=== PATIENT | female | born 1960 ===

== ENCOUNTER 2018-08-24 16:54 | Emergency (ER) | payer MEDICARE, OTHER ==
[2018-08-24 17:25] VITALS: RESP 16; O2SAT 99
[2018-08-24] MEDS ORDERED: Sodium Chloride 0.9% 1,000 ML IV STA (17:58)
--- NOTE | 2018-08-24 18:16 | ED PDOC ---
HPI: Abdomen Time Seen by Provider: 08/24/18 17:32 Chief Complaint (Nursing): Abdominal Pain Chief Complaint (Provider): Abdomianl pain History Per: Patient History/Exam Limitations: no limitations Onset/Duration Of Symptoms: Days (2) Current Symptoms Are (Timing): Still Present Additional Complaint(s): 58yo female, history of diverticulitis, comes to ER reporting left lower abdominal pain x 2 days with associated frequent stools. She denies any diarrhea, black or bloody stools; also denies any nausea, vomiting or changes in appetite. Patient states her symptoms are similar to prior diagnosis of diverticulitis 5 months ago. She otherwise denies any fever, chills, foreign travels or known sick contacts. She does report she is on the last day of her antibiotics course due to bronchitis. She does report some urinary frequency as well. PMD: Past Medical History Reviewed: Historical Data, Nursing Documentation, Vital Signs Vital Signs: Last Vital Signs Temp 98.4 F 08/24/18 17:22 Pulse 81 08/24/18 17:22 Resp 16 08/24/18 17:22 BP 122/78 08/24/18 17:22 Pulse Ox 99 08/24/18 17:22 - Medical History PMH: Asthma - Surgical History Surgical History: Cholecystectomy - Family History Family History: States: Hypertension - Social History Current smoker - smoking cessation education provided: No - Immunization History Hx Tetanus Toxoid Vaccination: No Hx Influenza Vaccination: No Hx Pneumococcal Vaccination: No - Home Medications Home Medications: Ambulatory Orders Medication Instructions Recorded Advair Diskus 06/23/14 Ciprofloxacin [Cipro] 1 tab PO BID #20 tab 08/24/18 Dicyclomine [Bentyl] 20 mg PO QID PRN #20 tab 08/24/18 Ibuprofen [Motrin Tab] 600 mg PO Q8 PRN #60 tab 08/24/18 metroNIDAZOLE [Flagyl] 500 mg PO TID #30 tab 08/24/18 - Allergies Allergies/Adverse Reactions: Allergies Allergy/AdvReac Type Severity Reaction Status Date / Time No Known Allergies Allergy Verified 08/24/18 17:25 Review of Systems ROS Statement: Except As Marked, All Systems Reviewed And Found Negative (per HpI) Gastrointestinal: Positive for: Abdominal Pain. Negative for: Diarrhea, Melena, Hematochezia Genitourinary Female: Positive for: Frequency Physical Exam - Reviewed Nursing Documentation Reviewed: Yes Vital Signs Reviewed: Yes - Physical Exam Appears: Positive for: Non-toxic, Uncomfortable (mild painful distress) Head Exam: Positive for: ATRAUMATIC, NORMAL INSPECTION, NORMOCEPHALIC Skin: Positive for: Normal Color Eye Exam: Positive for: Normal appearance, EOMI, PERRL Neck: Positive for: Normal, Supple Cardiovascular/Chest: Positive for: Regular Rate, Rhythm. Negative for: Tachycardia Respiratory: Positive for: Normal Breath Sounds Gastrointestinal/Abdominal: Positive for: Soft, Tenderness (mild left lower quadrant and suprapubic tenderness). Negative for: Mass, Guarding, Rebound Back: Negative for: L CVA Tenderness, R CVA Tenderness Extremity: Positive for: Normal ROM. Negative for: Pedal Edema Neurological/Psych: Positive for: Awake, Alert, Oriented (x 3) - Laboratory Results Result Diagrams: 08/24/18 18:40 08/24/18 18:40 - ECG O2 Sat by Pulse Oximetry: 99 (RA) Pulse Ox Interpretation: Normal Medical Decision Making Medical Decision Making: Impression: Abdominal painn Differential: Diverticulitis, cystitis, colitis or enteritis Plan: -- labs -- Urinalysis -- Toradol 15mg IV -- IV fluids Labs unremarkable Pt in no distress. DW pt findings. Will treat as diverticulitis given current symptoms. Stable for dc. Advised PMD and GI followup. Scribe Attestation: Documented by Jacque Blackwell acting as a scribe for Jennifer Raymond MD. Provider Attestation: All medical record entries made by the Scribe were at my direction and personally dictated by me. I have reviewed the chart and agree that the record accurately reflects my personal performance of the history, physical exam, medical decision making, and the department course for this patient. I have also personally directed, reviewed, and agree with the discharge instructions and disposition. Disposition - Clinical Impression Clinical Impression: Diverticulitis, Abdominal pain Counseled Patient/Family Regarding: Studies Performed, Diagnosis, Need For Followup, Rx Given - Disposition Referrals: Joey Verduzco MD [Family Provider] - 08/27/18 (FOLLOWUP WITH DR VERDUZCO BY THE END OF THE WEEK. YOU SHOULD ALSO FOLLOWUP WITH A FILM COATER FOR FURTHER EVALUATION (POSSIBLE COLONOSCOPY.)) Ray Chin MD [Staff Provider] - Disposition: Routine/Home Disposition Time: 20:00 Condition: STABLE Prescriptions: Ciprofloxacin [Cipro] 1 tab PO BID #20 tab Dicyclomine [Bentyl] 20 mg PO QID PRN #20 tab PRN Reason: abdominal pain Ibuprofen [Motrin Tab] 600 mg PO Q8 PRN #60 tab PRN Reason: Pain, Moderate (4-7) metroNIDAZOLE [Flagyl] 500 mg PO TID #30 tab Instructions: Diverticulitis (DC), Acute Abdomen (Belly Pain), Adult (DC) Forms: [facility] School/Work Excuse
[2018-08-24 19:02] LABS: ALB/GLOB RATIO 1.3 (1.0-2.1); ALT/SGPT 34 U/L (9-52); AST/SGOT 30 U/L (14-36); BLOOD UREA NITROGEN 10 mg/dl (7-17); GFR NON-AFRICAN AMERICAN > 60
[2018-08-24 19:04] LABS: BASO % 0.4 % (0.0-2.0); EOS # 0.3 K/uL (0.0-0.7); EOS % 3.9 % (0.0-4.0); HEMOGLOBIN 13.5 g/dL (12.0-16.0); LYMPH # 1.8 K/uL (1.0-4.3); LYMPH % 21.8 % (20.0-40.0); MEAN CELL VOLUME 90.1 fl (81.0-99.0); MEAN CORPUSCULAR HGB CONC 33.3 g/dL (33.0-37.0); MEAN PLATELET VOLUME 8.7 fl (7.2-11.7); MONO # 0.9 K/uL (0.0-0.8); MONO % 10.3 % (0.0-10.0); NEUT # 5.4 K/uL (1.8-7.0); NEUT % 63.6 % (50.0-75.0); RBC 4.51 Mil/uL (3.80-5.20); RED CELL DISTRIBUTION WIDTH 13.2 % (11.5-14.5); WHITE BLOOD COUNT 8.5 K/uL (4.8-10.8)
[2018-08-24 19:22] LABS: URINE BILIRUBIN NEGATIVE (NEGATIVE); URINE BLOOD SMALL (NEGATIVE); URINE CLARITY CLEAR (Clear); URINE COLOR YELLOW (YELLOW); URINE GLUCOSE (UA) NEG (NEGATIVE); URINE LEUKOCYTE ESTERASE NEG Leu/uL (Negative); URINE PROTEIN NEGATIVE (NEGATIVE); URINE UROBILINOGEN 0.2-1.0 mg/dL (0.2-1.0)
[2018-08-24 20:31] VITALS: BP 122/75; PULSE 76; TEMP 98.3
== END 2018-08-24 20:50 | disposition home or self-care (01) ==
LOC: H.ER 16:54
DX: R10.30 Lower abdominal pain, unspecified (principal); K57.00 Diverticulitis of small intestine with perforation and abscess without bleeding
CPT/HCPCS: 80053; 81003; 85025; 87086; 96361; 96374; 99285; J1885; J7030